=== PATIENT | female | born 1995 | race Caucasian/White ===

== ENCOUNTER 2018-11-09 09:36 | Emergency (ER) | payer MEDICARE, MEDICAID ==
[2018-11-09] MEDS ORDERED: Ondansetron INJ* 2 MG/ML VIAL IV ONE ×2 (09:57→11:09)
--- NOTE | 2018-11-09 09:58 | ED ---
Abdominal Pain/Female - HPI Summary HPI Summary: A 23 y/o female presents to [facility] with a chief complaint of increasing abdominal over pain the past month. At triage she her pain as a 5/10 in severity. She reports that yesterday she had a headache, and her pain moved from her lower abdomen to her upper abdomen. She also reports that her right side of her abdomen is more severe in pain. She claims that "everything" worsens her pain. She describes her headache as feeling like giant needles are going through (her) skull. She also c/o N/V, claiming that for the past few days she has not been able to keep anything down including medicine. She has been taking Tylenol and Ibuprofen. - History of Current Complaint Chief Complaint: Saritha Stated Complaint: "VOMITING PER PT" Time Seen by Provider: 11/09/18 09:49 Hx Obtained From: Patient Onset/Duration: Sudden Onset, Lasting Weeks, Still Present Timing: Constant Severity Initially: Mild Severity Currently: Moderate Pain Intensity: 5 Pain Scale Used: 0-10 Numeric Location: Diffuse Radiates: No Character: Other: - unable to describe Aggravating Factor(s): Other: - "everything" Alleviating Factor(s): Nothing Associated Signs and Symptoms: Positive: Nausea, Vomiting. Negative: Fever Allergies/Adverse Reactions: Allergies Allergy/AdvReac Type Severity Reaction Status Date / Time No Known Allergies Allergy Verified 11/09/18 09:59 Home Medications: Home Medications Depakote 500 mg PO DAILY 11/09/18 [History Confirmed 11/09/18] Omeprazole 40 mg PO DAILY 11/09/18 [History Confirmed 11/09/18] PMH/Surg Hx/FS Hx/Imm Hx Respiratory History: Reports: Other Respiratory Problems/Disorders - bronchitis in elementary school Denies: Hx Asthma GI History: Reports: Hx Gastroesophageal Reflux Disease Psychiatric History: Reports: Hx Autism, Hx of Violent Episodes Against Others Denies: Hx Eating Disorder Infectious Disease History: No Infectious Disease History: Denies: Traveled Outside the [place] in Last 30 Days - Family History Known Family History: Positive: Diabetes, Other - cancer - Social History Alcohol Use: None Substance Use Type: Reports: None Smoking Status (MU): Never Smoked Tobacco Review of Systems Negative: Fever Positive: Abdominal Pain, Vomiting, Nausea Positive: Headache All Other Systems Reviewed And Are Negative: Yes Physical Exam - Summary Physical Exam Summary: Appearance: The patient is well-nourished in no acute distress and in no acute pain. Skin: The skin is warm and dry and skin color reflects adequate perfusion. HEENT: The head is normocephalic and atraumatic. The pupils are equal and reactive. The conjunctivae are clear and without drainage. Nares are patent and without drainage. Mouth reveals moist mucous membranes and the throat is without erythema and exudate. The external ears are intact. The ear canals are patent and without drainage. The tympanic membranes are intact. Neck: The neck is supple with full range of motion and non-tender. There are no carotid bruits. There is no neck vein distension. Respiratory: Chest is non-tender. Lungs are clear to auscultation and breath sounds are symmetrical and equal. Cardiovascular: Heart is regular rate and rhythm. There is no murmur or rub auscultated. There is no peripheral edema and pulses are symmetrical and equal. Abdomen: The abdomen is soft and non-tender. There are normal bowel sounds heard in all four quadrants and there is no organomegaly palpated. Musculoskeletal: There is no back tenderness noted. Extremities are non-tender with full range of motion. There is good capillary refill. There is no peripheral edema or calf tenderness elicited. Neurological: Patient is alert and oriented to person, place and time. The patient has symmetrical motor strength in all four extremities. Cranial nerves are grossly intact. Deep tendon reflexes are symmetrical and equal in all four extremities. Psychiatric: The patient has an appropriate affect and does not exhibit any anxiety or depression. Triage Information Reviewed: Yes Vital Signs On Initial Exam: Initial Vitals Temp Pulse Resp BP Pulse Ox 98.6 F 128 16 126/96 95 11/09/18 09:37 11/09/18 09:37 11/09/18 09:37 11/09/18 09:37 11/09/18 09:37 Vital Signs Reviewed: Yes Diagnostics - Vital Signs Vital Signs Temp Pulse Resp BP Pulse Ox 11/09/18 09:37 98.6 F 128 16 126/96 95 - Laboratory Result Diagrams: 11/09/18 10:58 11/09/18 10:58 Lab Statement: Any lab studies that have been ordered have been reviewed, and results considered in the medical decision making process. - CT abdomen/pelvis CT Interpretation Completed By: Radiologist Summary of CT Findings: 1. BORDERLINE MILD THICKENING OF THE WALL OF THE TRANSVERSE COLON SUGGESTING THE. POSSIBILITY OF MILD COLITIS. 2. MILDLY ENLARGED MESENTERIC LYMPH NODES IN THE RIGHT LOWER QUADRANT POSSIBLY INDICATING. MESENTERIC ADENITIS. 3. HEPATOMEGALY AND HEPATIC STEATOSIS. ED physician has reviewed this imaging report. - Ultrasound No standard instances Ultrasound Interpretation Completed By: Radiologist Summary of Ultrasound Findings: Pelvis ultrasound impression: BILATERAL ENLARGED OVARIES. ED physician has reviewed this imaging report. Re-Evaluation - Re-Evaluation First Eval Re-Evaluation Time: 14:56 Change: Improved Comment: Pt feels better Abdominal Pain Fem Course/Dx - Course Course Of Treatment: Ms. Twin Saleh presented complaining of nausea and abdominal pain. She had labs obtained by her PCP yesterday which were within normal limits. She's had abdominal pain for about a month since she returned from traveling but just developed the nausea. Initially the pain was primarily in her right lower quadrant but today states she says that it has included both quadrants. She was tachycardic on arrival but did not meet septic criteria. She was given Zofran for nausea as well as IV fluids. Her white count returned at 11.7 and at that point she did not meet septic criteria. She was refractory to treatment twice with Zofran and was therefore given Compazine for her nausea and vomiting. A pelvic ultrasound had been obtained when she got here and was remarkable only for enlarged ovaries. Because her white count has gone up overnight a CT scan was obtained which revealed a colitis with some lymphadenopathy. The Compazine did help for her nausea and vomiting and she slept a while but then she spiked a fever and continued to be tachycardic. At that point she met septic criteria more fluids were given as well as antibiotics. She was given Cipro and Flagyl. She was sleeping and her heart rate was gradually coming down with continued IV fluids when she abruptly removed her own IV and left apparently. - Diagnoses Provider Diagnoses: Colitis Discharge - Sign-Out/Discharge Documenting (check all that apply): Patient Departure - DC Patient Received Moderate/Deep Sedation with Procedure: No - Discharge Plan Condition: Stable Disposition: HOME Prescriptions: Ciprofloxacin TAB* [Cipro Tab*] 500 mg PO BID #20 tab metroNIDAZOLE [Flagyl 500 MG TAB] 500 mg PO TID #30 tab Prochlorperazine TAB* [Compazine Tab*] 5 mg PO Q6H PRN #20 tab PRN Reason: Nausea/Vomiting Patient Education Materials: Colitis (ED) Referrals: Roslyn DÍAZ,Jodee Guo [Primary Care Provider] - (2-3 days) Additional Instructions: Return to the ED if you experience any new or worsening symptoms. - Billing Disposition and Condition Condition: STABLE Disposition: Home - Attestation Statements Document Initiated by Scribe: Yes Documenting Scribe: Boubacar Charles Provider For Whom Scribe is Documenting (Include Credential): Ryan Ovalles MD Scribe Attestation: I, Boubacar Charles, scribed for Ryan Ovalles MD on 11/09/18 at 1847. Scribe Documentation Reviewed: Yes Provider Attestation: The documentation as recorded by the Boubacar lafleur accurately reflects the service I personally performed and the decisions made by me, Ryan Ovalles MD Status of Scribe Document: Viewed
--- OUTSIDE RECORDS SUMMARY | 2018-11-09 10:16 | XMS REPORT | Continuity of Care Document ---
:1995 External Reference #:[id number] Author Name Bin Mckeon D.O. Address [address] [place] [address] Care Team Providers Name Role Phone HCP given Primary Care Physician Unavailable Payers Date Identification Numbers Payment Provider Subscriber Effective: Policy Number: [id number] [facility] Issa Saleh 2018 Services PayID: [id number] [facility] [address] [place] [id number] Effective: 2018 Policy Number: [id number] Medicaid Issa Saleh PayID: [id number] [address] [place] [address] Problems Active Problems Provider Date Overweight Jodee Mcgowan PA Onset: 03/26/2018 Borderline personality disorder Jodee Mcgowan PA Onset: 04/17/2017 Asperger's disorder Jodee Mcgowan PA Onset: 04/17/2017 Gastroesophageal reflux disease Jodee Mcgowan PA Onset: 04/17/2017 Disruptive mood dysregulation disorder Jodee Mcgowan PA Onset: 04/17/2017 Social History Type Date Description Comments Sex Unknown Education High School Completed Marital Status Single Lives With [facility] at 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 Working last worked 2015 [employer] 08/09/2018 Right-handed Tobacco Use Start: Unknown Denies Cigarette Use ETOH Use Denies alcohol use Recreational Drug Use Denies Drug Use Tobacco Use Start: Unknown Non Smoker Smoking Status Reviewed: 03/28/18 Non Smoker Exercise Type/Frequency Exercises sporadically Sun Exposure Does not use sunscreen Seat Belt/Car Seat Seat Belt Use - Yes Guns in Home No Smoke Alarms Yes smoke alarm Currently Active Has never engaged in sexual activity Contraceptive Methods Depo-Provera Allergies, Adverse Reactions, Alerts Description No Known Drug Allergies Medications Active Medications SIG Qnty Indications Ordering Date Provider Omeprazole 1 cap by mouth 90capfaraz Bin Mckeon, 07/04/2018 40mg every day D.O. Capsules DR Hilton/Dextromet 10ml by mouth 237ml J06.9 Ashwin Cantu, 2017 horphan Hydrobromide every 4-6 hours as M.D. needed for cough 10-100mg/5ML Syrup Divalproex Sodium ER one tab po every Unknown 04/16/2017 morning 500mg Tablets ER 24HR Acetaminophen 2 tabs by mouth Unknown 03/02/2017 325mg every 4 hours as Tablets needed for headache or temp >101 c/o general discomfort Ibuprofen take 2 tabs by Unknown 03/02/2017 200mg Tablets mouth every 6 hours as needed for pain/inflammation Maalox Max 30 ml every 4 Unknown 03/02/2017 Suspension hours as needed GI upset/indigestion/ diarrhea Triple Antibiotic apply small amount Unknown 03/02/2017 to affected areas Ointment bid as needed (minor cuts, abrasions,scrapes or open areas) Calamine moisten cotton Unknown 03/02/2017 Lotion ball gauze pad with calamine lotion and apply to affected areas to alleviate itching due to insect bites tid History Medications Amoxicillin Unknown 08/01/2018 - 500mg 08/12/2018 Capsules Omeprazole 1 by mouth twice 60caps Bin Mckeon, 04/16/2017 - 20mg Capsules daily D.O. 07/04/2018 Medications Administered in Office Medication SIG Qnty Indications Ordering Provider Date TB Intradermal Test Unknown 09/12/2016 Injection TB Intradermal Test Unknown 07/31/2016 Injection Immunizations CPT Code Status Date Vaccine Lot # [id number] Given 03/26/2018 Influenza Virus Vaccine, Quadrivalent, Split, [id number] Preservative Free 29037 Given 04/17/2017 Adacel or Boostrix, TDaP 56432 Given 03/21/2017 Influenza Virus Vaccine, Quadrivalent, Split, Preservative Free 40114 Given 09/09/2012 Menactra Menningitis Vaccine 45341 Given 07/11/2010 Gardasil HPV vaccine 73504 Given 08/17/2009 Gardasil HPV vaccine 41039 Given 05/24/2009 Menactra Menningitis Vaccine 23868 Given 05/24/2009 Varicella (Chicken Pox) Immunization 15735 Given 05/24/2009 Gardasil HPV vaccine 43962 Given 06/25/2006 Adacel or Boostrix, TDaP 40772 Given 05/15/2006 Adacel or Boostrix, TDaP 06775 Given 06/20/2002 flu mist - live influenza virus vaccine for intranasal use 72410 Given 05/30/2000 Hep B Immunization, Ped/Adolescent To 11 Yrs 01581 Given 02/28/1999 Dtap Immunization (Tripedia) (Infanrix) 27484 Given 02/28/1999 MMR Virus Immunization 50389 Given 07/15/1996 Varicella (Chicken Pox) Immunization 56934 Given 07/15/1996 Poliomyelitis Immunization 57763 Given 07/15/1996 MMR Virus Immunization 11786 Given 07/15/1996 Dtap Immunization (Tripedia) (Infanrix) 85758 Given 07/15/1996 Hib 4 Dose, Acthib 17099 Given 1995 Hep B Immunization, Ped/Adolescent To 11 Yrs 31643 Given 1995 Poliomyelitis Immunization 83984 Given 1995 Hib 4 Dose, Acthib 78823 Given 1995 Dtap Immunization (Tripedia) (Infanrix) 26703 Given 1995 Hib 4 Dose, Acthib 61053 Given 1995 Poliomyelitis Immunization 88739 Given 1995 Dtap Immunization (Tripedia) (Infanrix) 58125 Given 1995 Hib 4 Dose, Acthib 92415 Given 1995 Hep B Immunization, Ped/Adolescent To 11 Yrs Vital Signs Date Vital Result Comment 11/08/2018 2:56pm BP Systolic 122 mmHg BP Diastolic 78 mmHg Body Temperature 98.7 F Height 63.5 inches 5'3.50" Weight 207.00 lb BMI (Body Mass Index) 36.1 kg/m2 08/09/2018 1:11pm BP Systolic 122 mmHg BP Diastolic 80 mmHg Body Temperature 98.3 F 08/01/2018 12:04pm BP Systolic 122 mmHg BP Diastolic 80 mmHg Body Temperature 98.2 F 07/30/2018 2:10pm BP Systolic 118 mmHg BP Diastolic 78 mmHg Weight 211.00 lb 05/15/2018 12:16pm BP Systolic 112 mmHg electr BP Diastolic 72 mmHg electr Heart Rate 85 /min Body Temperature 98.4 F Weight 203.00 lb 03/26/2018 2:09pm BP Systolic 126 mmHg BP Diastolic 80 mmHg Height 63.50 inches 5'3.50" Weight 203.50 lb BMI (Body Mass Index) 35.5 kg/m2 12/25/2017 4:55pm BP Systolic 120 mmHg BP Diastolic 80 mmHg Height 63 inches 5'3" Weight 204.00 lb BMI (Body Mass Index) 36.1 kg/m2 04/17/2017 9:27am Height 63.25 inches 5'3.25" Weight 179.00 lb BMI (Body Mass Index) 31.5 kg/m2 Results Test Date Facility Test Result H/L Range Note Laboratory test finding 08/09/2018 In House Culture Throat negative Culture Throat Rapid Screen negative Laboratory 08/01/2018 [facility]. Rapid Strep POSITIVE Abnormal Negative 1, 2 test finding LABORATORY A Antigen [phone] Laboratory 07/30/2018 [facility] Cytology SEE RESULT 3 test finding [phone] BELOW CBC Auto Diff 08/14/2017 [facility] White Blood 6.4 10^3/uL N 3.5- 10.8 [phone] Count Red Blood Count 4.58 10^6/uL N 4.0-5.4 Hemoglobin 14.2 g/dL N 12.0-16.0 Hematocrit 40 % N 35-47 Mean Corpuscular Volume 88 fL N 80-97 Mean Corpuscular Hemoglobin 31 pg N 27-31 Mean Corpuscular HGB Conc 35 g/dL N 31-36 Red Cell Distribution Width 13 % N 10.5-15 Platelet Count 290 10^3/uL N 150-450 Mean Platelet Volume 9 um3 N 7.4-10.4 Abs Neutrophils 3.4 10^3/uL N 1.5-7.7 Abs Lymphocytes 2.3 10^3/uL N 1.0-4.8 Abs Monocytes 0.7 10^3/uL N 0-0.8 Abs Eosinophils 0 10^3/uL N 0-0.6 Abs Basophils 0 10^3/uL N 0-0.2 Abs Nucleated RBC 0 10^3/uL Granulocyte % 52.3 % N 38-83 Lymphocyte % 36.3 % N 25-47 Monocyte % 10.1 % High 0-7 Eosinophil % 0.7 % N 0-6 Basophil % 0.6 % N 0-2 Nucleated Red Blood Cells % 0 Comp Metabolic Panel 08/14/2017 [facility] Sodium 137 mmol/L N 133- 145 [phone] Potassium 3.9 mmol/L N 3.5-5.0 Chloride 103 mmol/L N 101-111 Co2 Carbon Dioxide 27 mmol/L N 22-32 Anion Gap 7 mmol/L N 2-11 Glucose 87 mg/dL N 70-100 Blood Urea Nitrogen 12 mg/dL N 6-24 Creatinine 0.68 mg/dL N 0.51-0.95 BUN/Creatinine Ratio 17.6 N 8-20 Calcium 9.7 mg/dL N 8.6-10.3 Total Protein 7.1 g/dL N 6.4-8.9 Albumin 4.4 g/dL N 3.2-5.2 Globulin 2.7 g/dL N 2-4 Albumin/Globulin Ratio 1.6 N 1-3 Total Bilirubin 0.50 mg/dL N 0.2-1.0 Alkaline Phosphatase 56 U/L N 34-104 Alt 14 U/L N 7-52 Ast 14 U/L N 13-39 Egfr Non- 108.2 >60 Egfr 139.1 >60 4 Laboratory test 08/14/2017 [facility] Valproic Acid 39.0 g/mL Low 50-100 finding [phone] (Depakene) 1 FEELS LIKE THROAT IS CLOSING 2 Method: BD Veritor Chromatographic immunoassay 3 SEE RESULT BELOW Name: ISSA CHAIDEZ : [address]: Jodee DÍAZ Acct: [id number] Unit: [id number] AGE: 23 Location: [facility] Re07/30/18 SEX: F Status: PRE REF SPEC: [id number] AKASH: 07/30/18 [facility] DR: Jodee Mcgowan [facility] REQ: [id number] RECD: 07/31/18 STATUS: SOUT _ ORDERED: TP IMAGE ANALYS, HPV/Thin Prep COMMENTS: [id number] Negative for Intraepithelial lesion or Malignancy Date Time Test Result Flag (u) Normal Range 07/30/18 1513 @ HPV RNA Negative Negative @ @ The high-risk HPV types detected by the assay include: 16, @ 18, 31, 33, 35, 39, 45, 51, 52, 56, 58, 59, 66, and 68. A. Ectocervical/Endocervical Specimen Adequacy: Satisfactory of evaluation Transformation zone component identified Patient Information: HPV: High risk HPV RNA testing regardless of pap results. Actual Specimen Date: 07/30/18 LMP If Unknown: 03/2018 Spec Date if unknown: 06/2017 ?: N Post Menopausal?: N Hysterectomy?: N Previous Abnormal Pap Smears?:Y If Yes, enter Diagnosis: 06/2017 Other Pertinent History: On Depo Signed by and Reported on: QuincyHOWARD Austin (ASCP) [phone] This Pap test was evaluated with the assistance of the [employer] System. Due to cytologic findings at the residential property consultant microscope, comprehensive manual rescreening by a Wood Heel Fitter Machine may be required. The Pap Smear is a screening test designed to aid in the detection of premalignant and malignant conditions of the uterine cervix. It is not a diagnostic procedure and should not be used as the sole means of detecting cervical cancer. Both false- positive and false- negative reports do occur. Depending on your risk status, a Pap smear should be obtained and evaluated every 1-3 years. END OF REPORT DEPARTMENT OF PATHOLOGY, [address] [place] [address] Jesus Karimi M.D. Director [facility] # [id number] 4 Because ethnic data is not always readily available, this report includes an eGFR for both -Americans and non- Americans. The National Kidney Disease Education Program (NKDEP) does not endorse the use of the MDRD equation for patients that are not between the ages of 18 and 70, are , have extremes of body size, muscle mass, or nutritional status, or are non- or non-. According to the National Kidney Foundation, irrespective of diagnosis, the stage of the disease is based on the level of kidney function: Stage Description GFR(mL/min/1.73 m(2)) 1 Kidney damage with normal or decreased GFR 90 2 Kidney damage with mild decrease in GFR 60-89 3 Moderate decrease in GFR 30-59 4 Severe decrease in GFR 15-29 5 Kidney failure <15 (or dialysis) Procedures Date Code Description Status 07/25/2018 83481 Pure Tone, Threshold Completed 04/17/2017 26372 Audiometry Screen, Pure Tone, Air Completed Encounters Type Date Location Provider Dx Diagnosis Office Visit 08/09/2018 Main Office Lakisha Allen, J02.9 Acute pharyngitis , 1:00p P.A. unspecified Office Visit 08/01/2018 Main Office Lakisha Allen, R06.00 Dyspnea, unspecified 11:40a P.A. J04.0 Acute laryngitis R22.1 Localized swelling, mass and lump, neck Office Visit 05/15/2018 11:40a Main Office Jodee Mcgowan, J06.9 Acute upper PA respiratory infection, unspecified Office Visit 03/26/2018 1:50p Main Office Jodee Mcgowan, Z00.00 Encntr for general PA adult medical exam w/o abnormal findings Z23 Encounter for immunization F60.3 Borderline personality disorder E66.3 Overweight Z41.8 Encntr for oth proc for purpose oth than [facility] Z68.35 Body mass index (BMI) 35.0-35.9, adult Office Visit 12/25/2017 4:10p Main Office Jodee Mcgowan, M54.9 Dorsalgia, PA unspecified Z68.36 Body mass index (BMI) 36.0-36.9, adult Office Visit 04/17/2017 9:05a Main Office Jodee Mcgowan, F60.3 Borderline PA personality disorder F34.81 Disruptive mood dysregulation disorder K21.9 Gastro-esophageal reflux disease without esophagitis F84.5 Asperger's syndrome Z23 Encounter for immunization H91.93 Unspecified hearing loss, bilateral Z41.8 Encntr for oth proc for purpose oth than [facility]
[2018-11-09 11:07] LABS: ABS Lymphocytes 0.6 10^3/ul (1.0-4.8); ABS Monocytes 1.1 10^3/ul (0-0.8); ABS Neutrophils 9.6 10^3/ul (1.5-7.7); Hematocrit 41 % (35-47); Lymphocyte % 5.6 %; Mean Corpuscular HGB Conc 34 g/dL (31-36); Mean Corpuscular Hemoglobin 30 pg (27-31); Mean Corpuscular Volume 86 fL (80-97); Mean Platelet Volume 8.1 fL (7.4-10.4); Nucleated Red Blood Cells % 0.1; Platelet Count 261 10^3/uL (150-450); Red Blood Count 4.71 10^6 /uL (3.70-4.87); Red Cell Distribution Width 14 % (10-15); White Blood Count 11.3 10^3/uL (3.5-10.8)
[2018-11-09] MEDS ORDERED: NS 0.9% 1000 ML** 1,000 ML IV ONE ×3 (11:09→16:09)
[2018-11-09 11:23] LABS: ALT 14 U/L (7-52); AST 13 U/L (13-39); Albumin 4.1 g/dL (3.2-5.2); Albumin/Globulin Ratio 1.4 (1-3); Alkaline Phosphatase 76 U/L (34-104); Anion Gap 10 mmol/L (2-11); BUN/Creatinine Ratio 9.6 (8-20); Blood Urea Nitrogen 7 mg/dL (6-24); C Reactive Protein 95.27 mg/L (<8.01); CO2 Carbon Dioxide 24 mmol/L (22-32); Calcium 8.9 mg/dL (8.6-10.3); Chloride 105 mmol/L (101-111); EGFR African American 119.5 (>60); EGFR Non-African American 98.8 (>60); Glucose 126 mg/dL (70-100); Potassium 3.5 mmol/L (3.5-5.0); Sodium 139 mmol/L (135-145); Total Protein 7.1 g/dL (6.4-8.9)
[2018-11-09 11:29] LABS: HCG Pregnancy < 0.60 mIU/mL
[2018-11-09] MEDS ORDERED: PROCHLORPERAZINE INJ 5 MG/ML 2 ML VIAL IV PRN (13:18)
[2018-11-09] MEDS ORDERED: Acetaminophen TAB* 325 MG PO ONE (15:31)
[2018-11-09] MEDS ORDERED: metroNIDAZOLE IV 500 MG/100ML* 500 MG/100 ML BAG IVPB ONE (15:31)
[2018-11-09] MEDS ORDERED: Ciprofloxacin TAB* 500 MG PO ONE (15:33)
[2018-11-09 17:35] VITALS: BP 107/64
== END 2018-11-09 17:35 | disposition home or self-care (01) ==
LOC: ED 09:36
DX: K52.9 Noninfective gastroenteritis and colitis, unspecified (principal); I88.0 Nonspecific mesenteric lymphadenitis; R16.0 Hepatomegaly, not elsewhere classified; K76.0 Fatty (change of) liver, not elsewhere classified; N83.8 Other noninflammatory disorders of ovary, fallopian tube and broad ligament; R11.2 Nausea with vomiting, unspecified; R51 Headache; K21.9 Gastro-esophageal reflux disease without esophagitis
CPT/HCPCS: 36415; 74176; 76856; 80053; 83605; 83690; 84702; 85025; 86140; 96361; 96365; 96375; 96376; 99285; A9270-GY; J0780; J2405; J3490